=== PATIENT | male | born 1965 ===

== ENCOUNTER 2019-08-16 09:18 | Day surgery (SDC) | payer BC ==
[~2019-08-16] VITALS: Ht 182.9 cm; Wt 93.2 kg
[~2019-08-16 09:18] MED LIST: Aspir 8181 MG PO; Daily Multivit1 EAC2 PO; PROP10 PO
--- NOTE | 2019-08-16 12:33 | NUR ---
08/16/19 1233 Sandie Duff S PT.'S WAS UPDATED THAT PT. WAS DOING FINE BUT WAS JUST TAKING A LITTLE LONGER FOR THE PROCEDURE.
== END 2019-08-16 13:26 | disposition home or self-care (01) ==
LOC: ORSCSDS 09:18
PROVIDERS: Surgery
PROC: 0DBM8ZX Excision of Descending Colon, Via Natural or Artificial Opening Endoscopic, Diagnostic (ICD-10-PCS; principal; 2019-08-16 11:00)
PROC: 0DBN8ZX Excision of Sigmoid Colon, Via Natural or Artificial Opening Endoscopic, Diagnostic (ICD-10-PCS; principal; 2019-08-16 11:00)
PROC: 3E0H8GC Introduction of Other Therapeutic Substance into Lower GI, Via Natural or Artificial Opening Endoscopic (ICD-10-PCS; principal; 2019-08-16 11:00)
DX: Z12.11 Encounter for screening for malignant neoplasm of colon (principal); D12.4 Benign neoplasm of descending colon; D12.5 Benign neoplasm of sigmoid colon; I10 Essential (primary) hypertension; F17.220 Nicotine dependence, chewing tobacco, uncomplicated; Z79.899 Other long term (current) drug therapy
CPT/HCPCS: 88305; J0330; J0461; J2405; J2704; J7040; J7120